=== PATIENT | male | born 1995 | race Two or more races ===

== ENCOUNTER 2019-09-04 11:00 | Emergency (ER) | payer OTHER ==
[~2019-09-04] VITALS: Ht 182.9 cm; Wt 104.3 kg
[2019-09-04 11:15] VITALS: BP 138/90
--- NOTE | 2019-09-04 11:15 | NUR ---
ED Nurse Note: Patient walked into ED c/o left middle finger injury, states that this is work related, and was crushed via manhole cover, patient rates his pain a 8/10 pain. patient is alert and oriented x4, the finger is crushed with bone visible. cleaned up wound, will continue to monitor
--- NOTE | 2019-09-04 11:28 | Emergency Room Report ---
History of Present Illness General Chief Complaint: Upper Extremity Injury Source: Patient Present Illness HPI Patient is a 24-year-old male presented after increased left middle finger pain. Patient reportedly had injured his finger after it was crushed in a manhole cover. He denies any other locations of injury. He denies any prior past medical history other than allergy to penicillin. he reports being right- hand dominant. Injury occurred at work. Allergies: Coded Allergies: PENICILLINS (Verified Allergy, Unknown, 09/04/19) Patient History Reviewed Nursing Documentation: PMH: Agreed; PSxH: Agreed Nursing Documentation-PMH Past Medical History: No Stated History Review of Systems All Other Systems: negative except mentioned in HPI Physical Exam Vital Signs Date Time Temp Pulse Resp B/P (MAP) Pulse Ox O2 Delivery O2 Flow Rate FiO2 09/04/19 11:09 97.9 86 18 138/90 (106) 96 Room Air Sp02 EP Interpretation: reviewed, normal General Appearance: normal inspection, well appearing, no apparent distress, alert, GCS 15, non-toxic Head: atraumatic ENT: normal ENT inspection, hearing grossly normal, normal voice Neck: normal inspection, full range of motion, supple, no bony tend Respiratory: normal inspection, lungs clear, normal breath sounds, no respiratory distress, no retraction, no wheezing Cardiovascular #1: regular rate, rhythm, no edema Gastrointestinal: normal inspection, normal bowel sounds, non tender, soft, no guarding, no hernia Genitourinary: no CVA tenderness Musculoskeletal: normal inspection, back normal, normal range of motion Neurologic: normal inspection, alert, responsive, speech normal Psychiatric: normal inspection, judgement/insight normal, mood/affect normal Medical Decision Making Diagnostic Impression: Primary Impression: Partial traumatic amputation of finger through phalanx Last Vital Signs Date Time Temp Pulse Resp B/P (MAP) Pulse Ox O2 Delivery O2 Flow Rate FiO2 09/04/19 11:09 97.9 86 18 138/90 (106) 96 Room Air Status: improved Disposition: HOME, SELF-CARE Scripts No Active Prescriptions or Reported Meds Kai Montanez MD Sep 04, 2019 11:28
[2019-09-04] MEDS ORDERED: Tetanus/Diptheria/Pertussis IM ONE (11:30)
[2019-09-04] MEDS ORDERED: Ketorolac 30mg Inj IV ONE (11:30)
--- NOTE | 2019-09-04 12:30 | NUR ---
ED Nurse Note: Patient calm in bed waiting for plastic surgery referral
--- NOTE | 2019-09-04 12:36 | Diagnostic Imaging Report ---
Indication: pain in finger. trauma Findings: 3 views of the left third digit finger were obtained. Traumatic amputation or truncation of the distal phalangeal tuft of third digit demonstrated. Soft tissue injury also noted. IMPRESSION: Acute truncation injury of the third distal phalangeal tuft
[2019-09-04] MEDS ORDERED: Lidocaine 2% MPF 5ml Vial INJ ONE ×3 (13:12→13:45)
[2019-09-04] MEDS ORDERED: Nitroglycerin 2% oint pkt TOPIC ONE (14:15)
[2019-09-04] MEDS ORDERED: CLEOCIN HCL300 MG PO (14:17)
[2019-09-04] MEDS ORDERED: NORCO 5-325 TA1 EACH ORAL (14:17)
[2019-09-04] MEDS ORDERED: IBUPROFEN600 MG ORAL (14:17)
[2019-09-04] MEDS ORDERED: NITRO-BID30 GM TD (15:21)
[2019-09-04 15:30] VITALS: BP 132/82
--- NOTE | 2019-09-04 15:30 | NUR ---
ER DISCHARGE NOTE: Patient is cleared to be discharged per ERMD, pt is aox4, on room air, with stable vital signs. pt was given dc and prescription instructions, pt was able to verbalize understanding, pt id band and iv site removed without complications. pt is able to ambulate with steady gait. pt took all belongings.
== END 2019-09-04 15:30 | disposition home or self-care (01) ==
LOC: EMR 13:02
DX: S68.123A Partial traumatic metacarpophalangeal amputation of left middle finger, initial encounter (principal); Z23 Encounter for immunization; Z88.0 Allergy status to penicillin; X58.XXXA Exposure to other specified factors, initial encounter; Y92.410 Unspecified street and highway as the place of occurrence of the external cause; Y99.0 Civilian activity done for income or pay
CPT/HCPCS: 73140; 90471; 90715; 96365; 96375; 99284; J1885; J1956

== ENCOUNTER 2019-09-04 15:34 | Outpatient (RCR) | payer OTHER ==
[~2019-09-04 15:34] MED LIST: CLEOCIN HCL300 MG PO; IBUPROFEN600 MG ORAL; NITRO-BID30 GM TD; NORCO 5-325 TA1 EACH ORAL
--- NOTE | 2019-09-11 18:15 | Operative Note - Dictated ---
DATE OF OPERATION: 09/04/2019 The patient was seen in the emergency room on Saturday, approximately 6 days ago and was seen for a crush injury of the left distal phalanx and distal digit with an amputation proximal to the nail. The patient brought in the finger, which was actually still within a glove and in a cup of ice. The patient understood that I would attempt to suture it back on and clean it up and do the things I have to do. The patient was aware that he would need hyperbaric oxygen and to use nitro paste as well as to tap the finger in the week after surgery. The patient understood the risks, complications, and alternative methods of treatment, which included even shortening the bone not attaching the distal finger and just covering it or doing even a thenar flap or an abdomen flap over the finger. The patient understood the risks, complications, and alternative methods of treatment and consented with realistic expectations to have the finger sutured back on. DESCRIPTION OF PROCEDURE: We did digital block using a 2% plain. No epinephrine. The digital arteries of the digital nerves of the middle finger of the left hand. The area was prepped and draped with Betadine and was cleaned. The tip fragment was also placed in the Betadine and irrigated under pulsatile pressure. The bony fragment within the distal amputated finger was removed as well as some of the pulp and as well as some of the peripheral skin was debrided using a 11 blade and scissors. After multiple irrigations, we then have it sutured using a 4-0 blue Prolene the distal segment to the fragment. I used interrupted sutures to the proximal nail plate and the distal nail plate. There was also suturing around the periphery using interrupted 4-0 blue Prolene and this was done circumferentially around the whole finger. The patient was then given a tiny bit of nitro paste and Betadine as well as bacitracin with a Telfa dressing and a Morales type dressing to cover the finger. The patient was also given clindamycin antibiotic to be taken orally and also was given a prescription for Nitro-Bid and was told to tap the finger and was sent immediately to hyperbaric oxygen where he received 2 hours of hyperbaric oxygen. The patient tolerated the surgery well and went to hyperbaric oxygen following the surgery. Arnaud Mckeon M.D. DR: ETTA JOB#: [id number] CC:
== END 2019-09-24 | disposition home or self-care (01) ==
LOC: WCC 15:34
DX: T86.821 Skin graft (allograft) (autograft) failure (principal); S68.115A Complete traumatic metacarpophalangeal amputation of left ring finger, initial encounter; S68.115D Complete traumatic metacarpophalangeal amputation of left ring finger, subsequent encounter; Z88.0 Allergy status to penicillin; X58.XXXA Exposure to other specified factors, initial encounter; Y92.9 Unspecified place or not applicable
CPT/HCPCS: G0277; G0463

== ENCOUNTER 2019-09-25 09:24 | Outpatient (RCR) | payer OTHER | END 2019-10-24 | disposition home or self-care (01) | LOC: WCC 09:24 | DX: T86.821 Skin graft (allograft) (autograft) failure (principal); S68.115A Complete traumatic metacarpophalangeal amputation of left ring finger, initial encounter; S68.115D Complete traumatic metacarpophalangeal amputation of left ring finger, subsequent encounter; Z88.0 Allergy status to penicillin; X58.XXXD Exposure to other specified factors, subsequent encounter | CPT/HCPCS: G0277; G0463 ==